=== PATIENT | female | born 1945 | race Caucasian/White ===

== ENCOUNTER → 2016-11-01 | Outpatient (CLI) | payer MEDICARE ==
[~2016-11-01] MED LIST: AMIT50TA PO; CELE200C PO; GABA600T2 PO
== END | disposition home or self-care (01) ==
LOC: CFH 14:26
PROVIDERS: ATTEND Internal Medicine Cardiovascular Disease
DX: Z13.6 Encounter for screening for cardiovascular disorders (principal); I25.10 Atherosclerotic heart disease of native coronary artery without angina pectoris; I10 Essential (primary) hypertension
CPT/HCPCS: 75571

== ENCOUNTER 2017-02-17 11:48 | Inpatient (IN) | payer MEDICARE ==
[~2017-02-17] VITALS: Ht 165.1 cm; Wt 59.3 kg
[2017-02-17] MEDS ORDERED: SODIUM CHLORIDE 0.9% 1,000ML IVBOLUS ONE (12:30)
[2017-02-17] MEDS ORDERED: SODIUM CHLORIDE FLUSH 10ML SYR IVF ONE (12:30)
[2017-02-17 12:43] LABS: BASOPHILS # (AUTO) 0.03 x10^3/uL (0-0.1); BASOPHILS % (AUTO) 0 % (0-1); EOSINOPHILS # (AUTO) 0.02 x10^3/uL (0-0.4); EOSINOPHILS % (AUTO) 0 % (1-7); LYMPHOCYTES # (AUTO) 1.19 x10^3/uL (1-3.4); LYMPHOCYTES % (AUTO) 12 % (22-44); MD NO; MEAN CORPUSCULAR HGB CONC 34.4 g/dL (32.4-35.8); MEAN CORPUSCULAR VOLUME 90.3 fL (80-100); MEAN PLATELET VOLUME 8.1 fL (7.4-10.4); MONOCYTES # (AUTO) 0.97 x10^3/uL (0.2-0.8); MONOCYTES % (AUTO) 10 % (2-9); NEUTROPHILS # (AUTO) 7.72 x10^3/uL (1.8-6.8); NEUTROPHILS % (AUTO) 78 % (42-75); PLATELET COUNT 268 x10^3/uL (130-400); RED BLOOD COUNT 4.02 x10^6/uL (3.82-5.3); RED CELL DISTRIBUTION WIDTH 13.3 % (9.6-15.2)
[2017-02-17 12:48] LABS: CHLORIDE 102 mmol/L (98-107)
[2017-02-17 12:49] LABS: ALANINE AMINOTRANSFERASE 23 U/L (12-78); ALBUMIN 3.4 g/dL (3.4-5.0); ANION GAP 6 mmol/L (5-15); CALCIUM 9.2 mg/dL (8.5-10.1); CREATININE 0.95 mg/dL (0.55-1.02)
[2017-02-17 12:51] LABS: ALKALINE PHOSPHATASE 71 U/L (45-117); BILIRUBIN,TOTAL 0.6 mg/dL (0.2-1.0); TOTAL PROTEIN 6.8 g/dL (6.4-8.2)
[2017-02-17 12:51] LABS: MICROSCOPIC AUTO
[2017-02-17 12:53] LABS: CULTURE INDICATED? YES
[2017-02-17] MEDS ORDERED: OMNIPAQUE 350 MG/ML, 100ML BOTTLE ONE (13:13)
[2017-02-17] MEDS ORDERED: CEFOTETAN PMX 1GM/50ML 50 ML IV ONE (13:30)
[2017-02-17] MEDS ORDERED: CEFOTETAN PMX 1GM/50ML 50 ML ONE (13:53)
[2017-02-17] MEDS ORDERED: TRAM50TA2 PO (14:03)
[2017-02-17] MEDS ORDERED: LISI5TAB7 PO (14:03)
[2017-02-17] MEDS ORDERED: ATOR40TA78 PO (14:03)
[2017-02-17] MEDS ORDERED: ZOLP-413 PO (14:03)
[2017-02-17] MEDS ORDERED: BUPIVACAINE/PF 0.5% ONE (14:55)
[2017-02-17] MEDS ORDERED: EPINEPHRINE 1 MG/ML, 1ML ONE (14:55)
[2017-02-17] MEDS ORDERED: FENTANYL PF 100 MCG/2ML ONE ×5 (14:58→17:45)
[2017-02-17] MEDS ORDERED: ROCURONIUM 10 MG/ML,10ML ONE (14:58)
[2017-02-17] MEDS ORDERED: CEFOTETAN PMX 2GM/50ML 50 ML ONE (14:58)
[2017-02-17] MEDS ORDERED: PROPOFOL 10 MG/ML, 20ML ONE ×2 (14:58→15:00)
[2017-02-17] MEDS ORDERED: ROCURONIUM 10MG/ML,5ML ONE (15:00)
[2017-02-17] MEDS ORDERED: NEOSTIGMINE 1 MG/ML, 10ML ONE ×2 (15:00→16:55)
[2017-02-17] MEDS ORDERED: GLYCOPYRROLATE 0.2MG/1ML, 5ML ONE ×3 (15:00→16:55)
[2017-02-17] MEDS ORDERED: DEXAMETHASONE 4 MG/ML, 1ML ONE ×2 (15:00→15:08)
[2017-02-17] MEDS ORDERED: CEFOTETAN 1 GM ONE (15:00)
[2017-02-17] MEDS ORDERED: ONDANSETRON 2MG/ML, 2ML ONE ×3 (15:00→17:48)
[2017-02-17] MEDS ORDERED: BUPIVACAINE/PF-EPI 0.5% 1:200K INFIL ONE (15:21)
[2017-02-17] MEDS ORDERED: PROMETHAZINE 25 MG/ML, 1ML IV PRN (15:30)
[2017-02-17] MEDS ORDERED: OXYcodone 5 MG/5 ML ORAL.SOL UDC PO PRN (15:30)
[2017-02-17] MEDS ORDERED: METOPROLOL 1 MG/ML, 5ML IV PRN (15:30)
[2017-02-17] MEDS ORDERED: LABETALOL 5MG/ML, 20ML IV PRN (15:30)
[2017-02-17] MEDS ORDERED: hydrALAzine 20 MG/ML, 1ML IV PRN (15:30)
[2017-02-17] MEDS ORDERED: ACETAMINOPHEN 325 MG TABLET PO PRN ×2 (15:30→20:30)
[2017-02-17] MEDS ORDERED: EPHEDRINE 50 MG/ML, 1ML IVPush PRN (15:30)
[2017-02-17] MEDS ORDERED: ALBUTEROL SULFATE 2.5 MG/3 ML NPPB PRN (15:30)
[2017-02-17] MEDS: FENTANYL PF 100 MCG/2ML IV PRN ×2 (17:40→17:50)
[2017-02-17] MEDS ORDERED: OXYcodone 5 MG/5 ML ORAL.SOL UDC ONE (17:45)
[2017-02-17] MEDS: ONDANSETRON 2MG/ML, 2ML IVPush PRN (17:45)
[2017-02-17] MEDS ORDERED: [UNRECOGNIZED DRUG - REMARK] MC SCH (19:00)
[2017-02-17 19:49] VITALS: BP 126/77
[2017-02-17] MEDS: KETOROLAC 30 MG/1 ML IV PRN (20:27)
[2017-02-17] MEDS ORDERED: ACETAMINOPHEN 650 MG SUPP PR PRN (20:30)
[2017-02-17] MEDS: LABETALOL 5MG/ML, 20ML IVPush SCH (20:30)
[2017-02-17] MEDS: CIPROFLOXACIN/PMX 400MG/200ML 200 ML IVPB SCH ×2 (20:30→22:30)
[2017-02-17] MEDS: POTASSIUM CHLORIDE 20 MEQ in D5%-0.45% NACL 1,000 ML IV SCH (21:02)
[2017-02-17] MEDS: METRONIDAZOLE PMX 500MG/100ML 100 ML IVPB SCH (21:02)
[2017-02-17] MEDS ORDERED: MULT-717 PO (21:50)
[2017-02-17] MEDS ORDERED: FLAX1000 PO (21:50)
[2017-02-17] MEDS ORDERED: OMEG-14 PO (21:50)
[2017-02-17] MEDS ORDERED: VITA400C9 PO (21:50)
[2017-02-17] MEDS ORDERED: DOCU100C33 PO (21:50)
[2017-02-17] MEDS ORDERED: ASCO500T7 PO (21:50)
[2017-02-17] MEDS ORDERED: ENOXAPARIN 40 MG/0.4 ML SQ SCH (23:00)
[2017-02-18 02:19] VITALS: BP 113/66
[2017-02-18] MEDS: LABETALOL 5MG/ML, 20ML IVPush SCH ×3 (04:30→20:30)
[2017-02-18] MEDS: METRONIDAZOLE PMX 500MG/100ML 100 ML IVPB SCH (04:31)
[2017-02-18] MEDS: ENOXAPARIN 40 MG/0.4 ML SQ SCH (04:32)
[2017-02-18 04:33] VITALS: BP 93/52
[2017-02-18 05:25] LABS: ALBUMIN 2.2 g/dL (3.4-5.0); CALCIUM 7.9 mg/dL (8.5-10.1); CREATININE 1.02 mg/dL (0.55-1.02)
[2017-02-18 05:26] LABS: ANION GAP 7 mmol/L (5-15); CHLORIDE 104 mmol/L (98-107)
[2017-02-18 05:33] LABS: MEAN CORPUSCULAR HEMOGLOBIN 30.6 pg (27.0-34.8); MEAN CORPUSCULAR HGB CONC 33.5 g/dL (32.4-35.8); MEAN CORPUSCULAR VOLUME 91.3 fL (80-100); MEAN PLATELET VOLUME 8.2 fL (7.4-10.4); PLATELET COUNT 238 x10^3/uL (130-400); RED BLOOD COUNT 3.93 x10^6/uL (3.82-5.3); RED CELL DISTRIBUTION WIDTH 13.5 % (9.6-15.2)
[2017-02-18] MEDS ORDERED: MELA1TAB8 PO (06:35)
[2017-02-18] MEDS: POTASSIUM CHLORIDE 20 MEQ in D5%-0.45% NACL 1,000 ML IV SCH ×2 (06:46→17:37)
[2017-02-18 06:58] LABS: MD YES
[2017-02-18 06:59] LABS: BAND#(MANUAL) 3.72 x10^3/uL; BANDS%(MANUAL) 28 % (0-7); LYMPH#(MANUAL) 1.06 x10^3/uL (1-3.4); LYMPHS% (MANUAL) 8 % (22-44); MONOS% (MANUAL) 6 % (2-9); SEG#(MANUAL) 7.71 x10^3/uL (1.8-6.8); SEGS% (MANUAL) 58 % (42-75)
[2017-02-18 07:00] VITALS: BP 98/65
[2017-02-18 07:00] LABS: <PLATELET ESTIMATE> ADEQUATE; <PLT MORPHOLOGY> NORMAL PLT MORPH; <RBC MORPHOLOGY> NORMAL
[2017-02-18] MEDS ORDERED: CIPROFLOXACIN/PMX 400MG/200ML 200 ML IV ONE (08:30)
[2017-02-18] MEDS: ONDANSETRON 2MG/ML, 2ML IV PRN ×2 (11:28→19:45)
[2017-02-18 12:46] VITALS: BP 103/58
[2017-02-18] MEDS: CIPROFLOXACIN/PMX 400MG/200ML 200 ML IVPB SCH (17:47)
[2017-02-18] MEDS: KETOROLAC 30 MG/1 ML IV PRN (19:45)
[2017-02-18 20:06] VITALS: BP 133/55
[2017-02-19] MEDS: POTASSIUM CHLORIDE 20 MEQ in D5%-0.45% NACL 1,000 ML IV SCH ×4 (01:59→22:30)
[2017-02-19] MEDS: KETOROLAC 30 MG/1 ML IV PRN ×2 (02:07→21:02)
[2017-02-19 04:17] VITALS: BP 115/62
[2017-02-19] MEDS: LABETALOL 5MG/ML, 20ML IVPush SCH ×3 (04:30→20:43)
[2017-02-19 06:56] VITALS: BP 123/64
[2017-02-19] MEDS: ENOXAPARIN 40 MG/0.4 ML SQ SCH (06:59)
[2017-02-19] MEDS ORDERED: MORPHINE SULFATE 4 MG/ML, 1ML IVPush PRN (10:30)
[2017-02-19 12:58] VITALS: BP 154/74
[2017-02-19] MEDS: OXYcodone/APAP 5/325MG TABLET PO PRN ×2 (16:31→22:30)
[2017-02-19 20:08] VITALS: BP 141/78
[2017-02-20 03:16] VITALS: BP 138/81
[2017-02-20 03:45] LABS: MEAN CORPUSCULAR HEMOGLOBIN 30.2 pg (27.0-34.8); MEAN CORPUSCULAR HGB CONC 33.5 g/dL (32.4-35.8); MEAN CORPUSCULAR VOLUME 90.3 fL (80-100); MEAN PLATELET VOLUME 8.3 fL (7.4-10.4); PLATELET COUNT 260 x10^3/uL (130-400); RED BLOOD COUNT 3.46 x10^6/uL (3.82-5.3); RED CELL DISTRIBUTION WIDTH 13.6 % (9.6-15.2)
[2017-02-20 03:52] LABS: ANION GAP 5 mmol/L (5-15); BASOPHILS # (AUTO) 0.02 x10^3/uL (0-0.1); BASOPHILS % (AUTO) 0 % (0-1); CALCIUM 8.5 mg/dL (8.5-10.1); CHLORIDE 108 mmol/L (98-107); EOSINOPHILS % (AUTO) 1 % (1-7); LYMPHOCYTES # (AUTO) 0.88 x10^3/uL (1-3.4); LYMPHOCYTES % (AUTO) 13 % (22-44); MONOCYTES # (AUTO) 0.51 x10^3/uL (0.2-0.8); MONOCYTES % (AUTO) 7 % (2-9); NEUTROPHILS # (AUTO) 5.39 x10^3/uL (1.8-6.8); NEUTROPHILS % (AUTO) 78 % (42-75)
[2017-02-20 03:53] LABS: CREATININE 0.82 mg/dL (0.55-1.02)
[2017-02-20 03:57] LABS: MD NO
[2017-02-20] MEDS: OXYcodone/APAP 5/325MG TABLET PO PRN ×3 (04:15→20:47)
[2017-02-20] MEDS: KETOROLAC 30 MG/1 ML IV PRN ×2 (04:15→15:47)
[2017-02-20] MEDS: LABETALOL 5MG/ML, 20ML IVPush SCH (04:30)
[2017-02-20] MEDS: ENOXAPARIN 40 MG/0.4 ML SQ SCH (06:48)
[2017-02-20] MEDS: POTASSIUM CHLORIDE 20 MEQ in D5%-0.45% NACL 1,000 ML IV SCH ×2 (09:43→20:44)
[2017-02-20 09:46] VITALS: BP 143/78
[2017-02-20] MEDS: LISINOPRIL 20 MG TABLET PO SCH (09:47)
[2017-02-20 19:45] VITALS: BP 165/74
[2017-02-21 01:22] VITALS: BP 159/74
[2017-02-21] MEDS: OXYcodone/APAP 5/325MG TABLET PO PRN ×4 (02:46→21:15)
[2017-02-21] MEDS: POTASSIUM CHLORIDE 20 MEQ in D5%-0.45% NACL 1,000 ML IV SCH ×2 (06:09→16:27)
[2017-02-21] MEDS: ENOXAPARIN 40 MG/0.4 ML SQ SCH (06:09)
[2017-02-21 07:28] VITALS: BP 160/74
[2017-02-21] MEDS: LISINOPRIL 20 MG TABLET PO SCH (09:11)
[2017-02-21 13:04] VITALS: BP 152/80
[2017-02-21] MEDS: MAGNESIUM HYDROXIDE 8%, 30ML UDC PO SCH ×2 (16:27→21:15)
[2017-02-21 20:00] VITALS: BP_SYST 160; BP_SYST 173; BP_DIAS 82; BP_DIAS 84
[2017-02-22] MEDS: POTASSIUM CHLORIDE 20 MEQ in D5%-0.45% NACL 1,000 ML IV SCH ×2 (00:02→12:33)
[2017-02-22 00:42] VITALS: BP_SYST 157; BP_SYST 159; BP_DIAS 107; BP_DIAS 109
[2017-02-22 02:11] VITALS: BP 153/94
[2017-02-22] MEDS: ONDANSETRON 2MG/ML, 2ML IV PRN (03:29)
[2017-02-22] MEDS: ENOXAPARIN 40 MG/0.4 ML SQ SCH (05:16)
[2017-02-22] MEDS: OXYcodone/APAP 5/325MG TABLET PO PRN (05:16)
[2017-02-22 08:39] VITALS: BP 139/90
[2017-02-22] MEDS: MAGNESIUM HYDROXIDE 8%, 30ML UDC PO SCH (09:00)
[2017-02-22] MEDS: LISINOPRIL 20 MG TABLET PO SCH (09:12)
[2017-02-22 14:14] VITALS: BP 167/91
[2017-02-22] MEDS ORDERED: HYDR-882 PO (14:33)
== END 2017-02-22 15:10 | disposition home or self-care (01) | DRG 853 ==
LOC: ED 13:29 → EDIP 13:40 → 4NOR 19:38
PROVIDERS: ADMIT Surgery; ATTEND Surgery
PROC: 0DJD4ZZ Inspection of Lower Intestinal Tract, Percutaneous Endoscopic Approach (ICD-10-PCS; 2017-02-17)
PROC: 0DTF0ZZ Resection of Right Large Intestine, Open Approach (ICD-10-PCS; principal; 2017-02-17 15:00)
DX: A41.9 Sepsis, unspecified organism (principal); K35.3 Acute appendicitis with localized peritonitis; E43 Unspecified severe protein-calorie malnutrition; N39.0 Urinary tract infection, site not specified; E78.5 Hyperlipidemia, unspecified; I10 Essential (primary) hypertension; K63.9 Disease of intestine, unspecified; K59.00 Constipation, unspecified; Z53.31 Laparoscopic surgical procedure converted to open procedure
CPT/HCPCS: 36415; 74000; 74177; 80048; 80053; 81001; 82040; 85025; 87086; 88304; 88309; 96361; 96365; J0171; J0744; J1100; J1650; J1885; J2270; J2405; J2704; J2710; J3010; J3480; J3490; Q9967; J7030; S0074